=== PATIENT | female | born 1970 | race African-American/Black ===

== ENCOUNTER 2017-10-02 09:56 | Emergency (ER) | payer SELFPAY ==
[~2017-10-02] VITALS: Ht 180.3 cm; Wt 153.3 kg
[2017-10-02 10:25] VITALS: BP_SYST 158
== END 2017-10-02 12:02 | disposition home or self-care (01) ==
LOC: SED 09:56
DX: J44.1 Chronic obstructive pulmonary disease with (acute) exacerbation (principal); Z88.8 Allergy status to other drugs, medicaments and biological substances
CPT/HCPCS: 99281